=== PATIENT | male | born 1995 | race African-American/Black ===

== ENCOUNTER 2024-03-25 14:00 | Emergency (ER) | payer OTHER ==
[~2024-03-25] VITALS: Wt 71.2 kg
[2024-03-25] MEDS ORDERED: METRONIDAZOLE 500 MG TAB PO ONE (14:55)
[2024-03-25] MEDS ORDERED: Doxycycline Hyclate 100 MG CAP PO ONE (14:55)
[2024-03-25 14:58] LABS: BILIRUBIN Negative (Negative); BLOOD Negative (Negative); CLARITY Clear (Clear); COLOR Yellow (Yellow); GLUCOSE Negative (Negative); KETONE Negative (Negative); LEUKO ESTERASE Trace (Negative); NITRITE Negative (Negative); PH 6.5 (4.5-8.0); UROBILINOGEN 0.2 E.U./dl (0.0-1.0)
[2024-03-25 15:06] LABS: BACTERIA TRACE; MUCOUS TRACE
[2024-03-25] MEDS ORDERED: Water, Sterile 10 ML VIAL ONE (15:09)
[2024-03-25] MEDS ORDERED: VIBRAMYCIN100 MG PO (15:13)
[2024-03-25] MEDS ORDERED: METRONIDAZOLE500 M1 PO (15:13)
== END 2024-03-25 15:14 | disposition home or self-care (01) ==
LOC: ED 14:00 → EDBD 14:10 → ED 15:14
PROVIDERS: Physician Assistant
DX: Z20.2 Contact with and (suspected) exposure to infections with a predominantly sexual mode of transmission (principal)